=== PATIENT | female | born 1970 | race African-American/Black ===

== ENCOUNTER 2018-03-12 12:03 | Outpatient (CLI) | payer MEDICARE, MEDICAID ==
--- NOTE | 2018-03-12 13:55 | RAD ---
FOUR VIEWS RIGHT KNEE: Date: 03-12-18 Comparison: None. History: Right knee pain for two weeks. FINDINGS: There is a prominent knee joint effusion, nonspecific. There is mild patellofemoral joint space narro wing with posterior patellar osteophyte formation. There is no displaced fracture or evidence of disl ocation. There is mild medial and lateral compartment narrowing. IMPRESSION: Prominent knee joint effusion with no fracture or evidence of dislocation. Knee joint effusion could be on the basis of degenerative change and/or inflammatory/infectious process. Clinical correlation r equired. POS: [facility]
== END 2018-03-12 12:04 | disposition home or self-care (01) ==
LOC: NAV RAD 12:03
PROVIDERS: ATTEND Family Medicine
DX: M25.561 Pain in right knee (principal); M25.461 Effusion, right knee